=== PATIENT | male | born 1990 | race Two or more races ===

== ENCOUNTER 2025-06-02 08:09 | Day surgery (SDC) | payer SELFPAY ==
[2025-05-31 09:54] LABS: INR 1.02 (0.9-1.15); Partial Thromboplastin Time 27.2 SEC (24.5-34.5); Prothrombin Time 10.8 sec (9.3-11.8)
[2025-05-31 10:00] LABS: Hematocrit 49.7 % (41.0-53.0); Hemoglobin 17.4 g/dL (13.5-17.5); Mean Corpuscular Hemoglobin 32.6 pg (28.0-32.0); Mean Corpuscular Volume 93.0 fL (80.0-100.0); Nucleated Red Blood Cells % 0.5 %
[2025-05-31 11:20] LABS: Albumin 4.6 g/dL (3.2-4.8); Alkaline Phosphatase 79 U/L (46-116); Anion Gap 9 (5-15)
[2025-05-31 11:21] LABS: Total Protein 7.5 g/dL (5.7-8.2)
[2025-05-31 11:26] LABS: Alanine Aminotransferase 97 U/L (7-40); Carbon Dioxide 31 mmol/L (20-31); Chloride 107 mmol/L (98-107); Glucose 112 mg/dL (74-106); Potassium 4.4 mmol/L (3.5-5.1); Sodium 147 mmol/L (136-145)
[2025-05-31 11:28] LABS: Urine Protein, UAD Negative (Negative)
[2025-05-31 11:38] LABS: BUN/Creatinine Ratio 6.8 (10.0-20.0); Bilirubin, Total 1.2 mg/dL (0.2-1.0); Blood Urea Nitrogen 8 mg/dL (9-23); Calcium 9.7 mg/dL (8.7-10.4)
[~2025-06-02] VITALS: Ht 177.8 cm; Wt 120.2 kg
[~2025-06-02 08:09] MED LIST: CHOL20004 PO; MILK500C2 PO
[2025-06-02] MEDS ORDERED: KETAMINE 50mg/ML 1ml syringe IV ONE (08:10)
[2025-06-02] MEDS ORDERED: KETOROLAC TROMETH 30 MG/ML 1ML VIAL ONE (10:04)
[2025-06-02] MEDS ORDERED: HYDROmorphone HCL 2 MG/ML VL/or syr ONE (10:04)
[2025-06-02] MEDS ORDERED: GLYCOPYRROLATE 0.2 MG/ML 1ML VIAL ONE (10:04)
[2025-06-02] MEDS ORDERED: ONDANSETRON HCL 4 MG/2 ML VIAL ONE (10:04)
[2025-06-02] MEDS ORDERED: fentaNYL CITRATE 100 MCG/2 ML VL ONE (10:04)
[2025-06-02] MEDS ORDERED: PROPOFOL 10 MG/ML 20 ML IV ONE (10:04)
[2025-06-02] MEDS ORDERED: ROCURONIUM 10MG/ML 10ML VIAL IV ONE (10:04)
[2025-06-02] MEDS ORDERED: MIDAZOLAM HCL 2MG/2ML 2ml VIAL (1mg/ml) ONE (10:04)
[2025-06-02] MEDS ORDERED: ceFAZolin 2 GM/D5W50ml 50 ML IV ONE (10:20)
[2025-06-02] MEDS: BUPIVACAINE 0.25% INJ 50ML VIAL ONE (12:01)
[2025-06-02] MEDS ORDERED: SUGAMMADEX 200mg/2ml Vial (100MG/ML) IV ONE (12:24)
[2025-06-02 13:05] VITALS: PULSE 89; RESP 12; TEMP 98.4; O2SAT 100
[2025-06-02] MEDS ORDERED: HYDROmorphone HCL 2 MG/ML VL/or syr IV PRN (13:15)
[2025-06-02] MEDS ORDERED: ONDANSETRON HCL 4 MG/2 ML VIAL IV PRN (13:15)
[2025-06-02] MEDS ORDERED: ACETAMINOPHEN IV 1000 MG/100ML (10MG/ML) IV ONE (13:15)
[2025-06-02 14:00] VITALS: BP 134/90; PULSE 98; RESP 17; O2SAT 95
--- NOTE | 2025-06-02 15:23 | DVHOP2 ---
Operative Report - 2 Report Details Date: 06/02/25 Preop Diagnosis: Umbilical hernia Postop Diagnosis: Umbilical hernia Surgeon: Patrick Chavez MD Administrative Services Officer: Rosalio Sin NP Anesthesiologist: Dr. Romano Anesthesia: General Implant: Bard Ventralex 4.3 cm diameter mesh Consent: The patient was informed of the risks and benefits of the procedure. These include but are not limited to complications of anesthesia, postoperative infection, incomplete relief of symptoms, recurrence of symptoms, damage to blood vessels, nerves and tendons, deep venous thrombosis, pulmonary embolism and possible need for repeat surgery in the future. Complications: None Estimated Blood Loss: 5 mL Findings: Hernia defect 2 x 1.5 cm, preperitoneal fat containing Indications for Surgery: Umbilical hernia causing pain and discomfort Name of Procedure Performed Open umbilical hernia repair with mesh Procedure Details Procedure Details: Upon arrival to the operating room the patient was transferred to the operating table and placed in the supine position with arms extended. General endotracheal anesthesia was induced. Time-out was observed. Patient was prepped and draped in the standard sterile surgical fashion with chlorhexidine. I then directed my attention to the umbilical area, where he had he notes noticeable umbilical bulging. I then made a infraumbilical curvilinear incision. I then dissected down to fascia, carefully. I then dissected around the umbilical stalk, with blunt finger dissection. I then placed a tonsil clamp behind the belly button stalk used it for retraction. I then transected the umbilical stalk, leaving the umbilical skin intact. I then noted preperitoneal fat bulging through a fascial defect. The defect was as the base of the stalk. Defect measured 2 cm x 1.5 cm. I denuded the umbilical stalk from all tissue. I tried to finger sweep under the fascia and encountered some adhesed tissue and fat. I then utilized retraction and cautery to release the adhesions underneath the fascia, creating a flat surface for the mesh to lay in. I then placed Ramses clamps at the horizontal edges of the fascia, used it as retraction, and placed 5 interrupted 0 Ethibond fascial sutures, they were clamped with Kellys. I then introduced the mesh through the defect, it was a Bard Ventralex 4.3 cm in diameter mesh. The mesh laid flat at the undersurface of the fascia. I then closed the previously placed fascial sutures. I then tacked the mesh wings to the fascia with 2 interrupted 0 Ethibond. Wound was then irrigated. I then utilized 2 interrupted 2-0 Vicryl sutures to reattach the umbilicus to the fascia. I then utilized 3 0 Vicryl to reapproximate the subcutaneous tissue. 3-0 Vicryl was also used to reapproximate the dermis. Skin was closed with 4-0 Monocryl and Dermabond. All counts complete and correct at the end of the procedure. Marcaine 0.25% was used as local anesthetic. Patient tolerated the procedure well and was transferred to PACU in stable condition. Specimen: None Condition Stable Disposition Home PATRICK ROBERTS MD Jun 02, 2025 15:23
== END 2025-06-02 15:10 | disposition home or self-care (01) ==
LOC: SUR 08:09
PROVIDERS: ATTEND Student in an Organized Health Care Education/Training Program
DX: K42.9 Umbilical hernia without obstruction or gangrene (principal); I10 Essential (primary) hypertension; E66.9 Obesity, unspecified; Z68.38 Body mass index [BMI] 38.0-38.9, adult; Z79.899 Other long term (current) drug therapy; Z87.891 Personal history of nicotine dependence; Z88.0 Allergy status to penicillin
CPT/HCPCS: 36415; 49591; 80053; 81001; 85025; 85610; 85730; 86850; 86900; 86901; C1781; J0690; J0694; J1100; J1171; J1885; J2250; J2405; J2704; J3010; J3490